=== PATIENT | male | born 1990 | race Caucasian/White ===

== ENCOUNTER 2017-10-20 15:59 | Emergency (ER) | payer MEDICAID, SELFPAY ==
[2017-10-20 16:00] VITALS: BP 134/80; PULSE 68; RESP 16; TEMP 36.4; O2SAT 98; BMI 19.0
--- NOTE | 2017-10-20 17:10 | RAD_ITS ---
STUDY: X-RAY - RIGHT ANKLE REASON FOR EXAM: Male, 27 years old. Increasing swelling and pain. Previous injury. Previous diagnosis of fracture at another facility. TECHNIQUE: 3 view(s) of the ankle. COMPARISON: 06/13/2013. FINDINGS: There is a very faint vertical lucency through the distal tibial metaphysis that was not present previously and could represent a nondisplaced fracture. Normal appearance of the visualized fibula. Normal visualized talus and calcaneus. The visualized subtalar, talonavicular, calcaneocuboid and tarsal articulations are normal. Prominent diffuse soft tissue swelling. RAD/Ankle min 3 Views IMPRESSION: There is a very faint vertical lucency through the distal tibial metaphysis that was not present previously and could represent a nondisplaced fracture. Electronically Signed: Miles Cabral MD at 18:09 EDT , Service support ,
--- NOTE | 2017-10-20 18:27 | ED.DCSUM_ITS ---
- ER Visit Summary Date of Service: 10/20/17 Chief Complaint: Pain and swelling of the right ankle History of Present Illness: The patient is a 27 M who presents with pain and swelling of the right ankle. He initially injured it a week ago when he kicked a plastic table. He was seen at [facility]. He had an x-ray and was diagnosed with an ankle fracture. He was placed in a splint and given crutches. He took off his splint because he states it was uncomfortable and he has been walking on it. He presents today because he still has ankle swelling and it is painful. He has not yet followed up with orthopedics. No other injuries. No paresthesias weakness or loss of function. Physical Examination: Afebrile vitals are stable Heart regular Lungs clear Patient does have soft tissue swelling of the right ankle he has normal sensation light touch brisk capillary refill. He has no calf tenderness he has no proximal fibular tenderness Test Results: X-ray shows a faint lucency vertically in the distal tibia which is likely nondisplaced fracture. Emergency Department Course and Treatment: Given that the patient has already been removed one splint I do not believe going on so I did not fabricate a new splint. He was given a boot orthosis. He was advised to not weight-bear on his ankle. He was advised on supportive care including elevation. He was advised to follow-up with orthopedics and was discharged home. Treatment Plan: [] Disposition: Discharge Impression: Right ankle fracture This note was generated with [employer] dictation software. It may contain incorrect words, spelling, and punctuation that were not noted in review of the chart prior to signing ED Disposition - Plan for ED Patient: Chief Complaint: Lower Extremity Injury Referrals: Care Physician,No Primary [Primary Care Provider] -
--- NOTE | 2017-10-20 18:27 | ED.DEP ---
ED Disposition - Plan for ED Patient: Chief Complaint: Lower Extremity Injury Instructions: ED Fx Ankle General Referrals: Care Physician,No Primary [Primary Care Provider] - Cali Solitario MD [STAFF PHYSICIAN] - Additional Instructions: Do not walk on your broken ankle. Leave the boot you were given on. Elevate your ankle. Follow-up with orthopedics. Apply ice.
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
[2017-10-20 18:50] VITALS: PULSE 89; RESP 16; O2SAT 98
== END 2017-10-20 18:51 | disposition home or self-care (01) ==
PROVIDERS: Emergency Provider Emergency Medicine
DX: S82.301A Unspecified fracture of lower end of right tibia, initial encounter for closed fracture (principal); W22.09XA Striking against other stationary object, initial encounter; Y93.9 Activity, unspecified; Y92.9 Unspecified place or not applicable; Y99.9 Unspecified external cause status; Z72.0 Tobacco use
CPT/HCPCS: 73610; 99283

== ENCOUNTER 2020-03-02 00:20 | Emergency (ER) | payer MEDICAID, SELFPAY ==
[2020-03-02] VITALS (9 sets, daily range): BP systolic 117–153; BP diastolic 67–101; PULSE 88–116; RESP 8–24; TEMP 36.2; O2SAT 96–100
--- NOTE | 2020-03-02 00:23 | RAD_ITS ---
STUDY: X-RAY - LEFT WRIST REASON FOR EXAM: Male, 29 years old. S/P FALL TECHNIQUE: 2 view(s) of the wrist were obtained. COMPARISON: None. FINDINGS: There is a comminuted fracture of the distal radial diaphysis at the junction with metaphysis with ulnar displacement. There is angulation of the distal fragment in relation to the major proximal fragment, tip of the ankle oriented volarly. There is fracture involving the styloid process of ulna with displacement. Otherwise normal radiocarpal articulation. Normal distal radioulnar articulation. Normal carpal bones. Normal carpal articulations. Normal carpometacarpal articulation of the thumb. Normal second through fifth carpometacarpal articulations. Normal visualized metacarpal bones. There is soft tissue swelling at the level of the wrist and distal forearm. RAD/Wrist min 3 Views IMPRESSION: Distal radial fracture is described. Fracture of the styloid process of ulna. Electronically Signed: Jailyn Tillman MD at 1:16 EST , Service support ,
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
[2020-03-02] MEDS: Ondansetron 4 MG/2 ML Vial IV (00:30)
[2020-03-02] MEDS: Diphth,Pertuss(Acell),Tet Vac 0.5 ML Vial IM (00:30)
[2020-03-02] MEDS: HYDROmorphone 1 MG/ML Syringe IM (00:32)
--- NOTE | 2020-03-02 00:52 | RAD_ITS ---
STUDY: X-RAY - LEFT WRIST REASON FOR EXAM: Male, 29 years old. POST REDUCTION TECHNIQUE: 3 view(s) of the wrist were obtained. COMPARISON: None. FINDINGS: Redemonstrated is comminuted fracture of the distal radius, status post reduction and now near anatomic alignment. No persistent mild separation along the fracture line. There is anatomical realignment at the level of the styloid process of ulna. Normal radiocarpal articulation. Normal distal radioulnar articulation. Normal carpal bones. Normal carpal articulations. Normal carpometacarpal articulation of the thumb. Normal second through fifth carpometacarpal articulations. Normal visualized metacarpal bones. The soft tissue structures are unremarkable. RAD/Wrist 2 Views IMPRESSION: Status post reduction with anatomic realignment of the distal radial and ulnar fractures as described. Electronically Signed: Jailyn Tillman MD at 1:16 EST , Service support ,
[2020-03-02] MEDS: Propofol 200 MG/20 ML Vial IV BOLUS (00:59)
== END 2020-03-02 02:04 | disposition home or self-care (01) ==
LOC: ED 01:16
PROVIDERS: Emergency Provider Emergency Medicine
DX: S52.502A Unspecified fracture of the lower end of left radius, initial encounter for closed fracture (principal); S52.612A Displaced fracture of left ulna styloid process, initial encounter for closed fracture; W01.198A Fall on same level from slipping, tripping and stumbling with subsequent striking against other object, initial encounter; Y93.02 Activity, running; Y92.9 Unspecified place or not applicable; Y99.9 Unspecified external cause status; F17.200 Nicotine dependence, unspecified, uncomplicated; Z23 Encounter for immunization
CPT/HCPCS: 25605; 73100; 73110; 90471; 90715; 96372; 96374; 96375; 99152; 99285; J7030; A4216; J2405

== ENCOUNTER 2021-06-11 20:48 | Emergency (ER) | payer MEDICAID, SELFPAY ==
[2021-06-11 20:49] VITALS: BP 146/101; PULSE 63; RESP 18; TEMP 35.8; O2SAT 98; BMI 20.3
--- NOTE | 2021-06-11 21:51 | CT_ITS ---
EXAM: CT HEAD WITHOUT INTRAVENOUS CONTRAST CLINICAL INDICATION: headache TECHNIQUE: Multiple axial images were obtained of the head without intravenous contrast. CTDIvol = ( 44.99 ) mGy, DLP = ( 829.85 ) mGycm This CT exam was performed using one or more of the following dose reduction techniques: automated exposure control, adjustment of the mA and/or kV according to patient size, and/or use of iterative reconstruction technique. This report was created using [employer] report generation technology. COMPARISON: None. FINDINGS: BRAIN AND EXTRA-AXIAL SPACES: Unremarkable. No intra- or extra-axial hemorrhage. No evidence of acute infarct. No intracranial mass or mass effect. There is preservation of the brown/white matter interface. Posterior fossa structures are unremarkable. Ventricles are appropriate for age. No hydrocephalus. Basal cisterns are patent. BONES/JOINTS: Unremarkable. No discrete lytic or blastic abnormalities. SINUSES: Unremarkable as visualized. Clear. MASTOID AIR CELLS: Unremarkable. Clear. ORBITS: Visualized globes, extraocular muscles, optic nerves and retrobulbar fat appear unremarkable. CT/Brain/Head without Contrast IMPRESSION: Negative head/brain CT without intravenous contrast. Electronically Signed: Jose Drake MD at 22:29 EDT ,
--- NOTE | 2021-06-11 21:54 | CM.ED ---
SW Note Referral Source: Case Find Referral Reason: NO PCP SW met with patient. SHELBI advised that this food writer noted that patient had no PCP. SW provided patient with Healthcare Provider Directory. No other concerns voiced except he wanted heated blanket. SW got patient a heated blanket. No other issues or needs identified. Plan: Resources provided Katharine ROSE
--- NOTE | 2021-06-11 22:39 | EX.ED.VIS.HA ---
HPI History of Present Illness Chief Complaint: Headache Informant: patient Onset/Context/Timing Current Severity: Gone Maximum Severity: Moderate Worsened by: light Relieved by: ibuprofen Associated Symptoms/Injury Associated Symptoms: Positive for Nausea and Photophobia; Negative for Numbness, Tingling, Preceding Aura, Visual Changes, Blurred Vision and Visual Loss Narrative Narrative: Patient presents because of headaches that have been going on for months at a time, then he will have no headache for months, this is been going on for several years and he has never seen anyone for it until today. With regards to the headache that he has had today, he states that he took ibuprofen and now it is gone and he feels fine. He has no known medical problems and does no drugs. They sometimes switch sides, and in researching it, he and his significant other are concerned he may be having cluster headaches. Oftentimes he gets headaches in the mornings, but also sometimes at night. PFSH PFSH Medical History no medical history no medical history Allergy/AdvReac Type Severity Reaction Status Date / Time lamotrigine [From Lamictal] Allergy Hives Verified 06/11/21 20:49 loperamide [From Imodium A-D] Allergy Hives Verified 06/11/21 20:49 Social History Smoking Status: Current every day smoker tobacco type: cigarettes ROS ROS ED Constitutional Constitutional ED: Denies chills or fever(s) Eyes Eyes: Reports photophobia; Denies blurry vision or diplopia ENT ENT ED: Denies ear pain or sore throat Cardiovascular Cardiovascular: Denies chest pain or palpitations Respiratory/Chest Respiratory/Chest: Denies cough or dyspnea Gastrointestinal Gastrointestinal: Reports nausea; Denies abdominal pain, diarrhea or vomiting Genitourinary Genitourinary ED: Denies dysuria or urinary frequency Musculoskeletal Musculoskeletal: Denies back pain or myalgias Integumentary Denies abscess or rash Neurologic Neurologic: Reports headache(s); Denies paresthesias or weakness EXAM Physical Exam Const Vital Signs: 06/11/21 20:49 Temperature 96.5 F L Temperature Source Temporal Pulse Rate 63 Respiratory Rate 18 Blood Pressure 146/101 H Blood Pressure Mean 116 Pulse Ox 98 Oxygen Delivery Method Room Air HEENT Reports normocephalic and moist mucous membranes atraumatic Eyes PERRL, EOMs intact bilaterally and conjunctivae normal Neck no lymphadenopathy, supple and no meningeal signs Resp normal respiratory effort and clear to auscultation bilaterally GI non-tender and non-distended Palpation: soft Extremity normal to inspection and full ROM Neuro oriented x3 and CN's II-XII intact bilaterally Sensorium / Orientation: awake and alert Speech: speech normal Gait (Neuro): normal gait Motor Exam: strength 5/5 throughout Psych mental status grossly normal Skin Lesions: no lesions Rashes: no rashes MDM MDM MDM Narrative Medical decision making narrative: I did a CT of the head, it shows no acute abnormality. Patient was reassured and given referral to neurology to follow-up with he is comfortable with that plan and understands we typically do not prescribe preventatives out of the emergency department until they follow-up. Radiography Diagnostic Testing: Clinical Impression(s) from Imaging Studies Brain CT 06/11/21 21:51 IMPRESSION: Negative head/brain CT without intravenous contrast. Electronically Signed: Jose Drake MD at 22:29 EDT , Discharge Plan Triage Chief Complaint: Headache ED Provider: Titus Coronado Dx/Rx/DC Orders Clinical Impression: Intermittent headache Instructions: ED Headache Unspecified Primary Care Provider: Care Physician,No Primary Referrals: Jose Zayas MD [STAFF PHYSICIAN] - (call for appt) Care Physician,No Primary [Primary Care Provider] - Disposition Disposition: Home, Self Care
== END 2021-06-11 22:57 | disposition home or self-care (01) ==
PROVIDERS: Emergency Provider Emergency Medicine; Visit Provider Emergency Medicine
DX: R51.9 Headache, unspecified (principal); R11.0 Nausea; F17.210 Nicotine dependence, cigarettes, uncomplicated
CPT/HCPCS: 70450; 99282

== ENCOUNTER 2021-09-07 16:25 | Emergency (ER) | payer MEDICAID, SELFPAY ==
[2021-09-07 16:26] VITALS: BP 119/90; PULSE 82; RESP 14; TEMP 36.6; O2SAT 98; BMI 19.1
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
[2021-09-07 16:47] VITALS: RESP 18
[2021-09-07] MEDS: Ceftriaxone 500 MG Vial IM (16:55)
[2021-09-07] MEDS: Azithromycin 250 MG Tablet 1000 MG PO (16:55)
[2021-09-07 18:44] LABS: Chlamydia Trachomatis by PCR Negative (Negative); Neisserai gonorrhoeae by PCR Positive (Negative); Probe Check PASS
== END 2021-09-07 17:17 | disposition home or self-care (01) ==
LOC: ED 17:02
PROVIDERS: Nurse Practitioner; Emergency Provider Emergency Medicine; Visit Provider Emergency Medicine
DX: Z20.2 Contact with and (suspected) exposure to infections with a predominantly sexual mode of transmission (principal); R36.9 Urethral discharge, unspecified; R30.0 Dysuria; F17.210 Nicotine dependence, cigarettes, uncomplicated
CPT/HCPCS: 87491; 87591; 96372; 99283

== ENCOUNTER 2021-11-19 13:49 | Emergency (ER) | payer MEDICAID, SELFPAY ==
[2021-11-19 13:50] VITALS: BP 121/91; PULSE 74; RESP 15; TEMP 36.7; O2SAT 98; BMI 18.8
--- NOTE | 2021-11-19 14:03 | RAD_ITS ---
STUDY: X-RAY - LEFT KNEE REASON FOR EXAM: Male, 31 years old. Pain following trauma. TECHNIQUE: 4 view(s) of the knee. COMPARISON: None. FINDINGS: Normal visualized distal femur. Normal visualized proximal tibia and fibula. Normal proximal tibiofibular articulation. Normal medial femorotibial compartment. Normal lateral femorotibial compartment. Normal patellofemoral articulation. The soft tissue structures are unremarkable. RAD/Knee 4 or More Views IMPRESSION: Normal x-ray examination of the knee. Electronically Signed: Villa Ventura MD at 14:51 EDT ,
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
--- NOTE | 2021-11-19 14:17 | RAD_ITS ---
STUDY: X-RAY - RIGHT HAND REASON FOR EXAM: Male, 31 years old. Pain following injury. TECHNIQUE: 3 view(s) of the hand. COMPARISON: Comparison is made with prior study dated 12/18/2016. FINDINGS: Normal radiocarpal articulation. Normal distal radioulnar joint. Normal visualized carpal bones. Normal carpal articulations Normal carpometacarpal articulation of the thumb. Normal second through fifth carpometacarpal joints. Foreshortened fifth metacarpal. Stable deformity of the distal portion of the fifth metacarpal boxer type fracture. Healed fracture of the distal portion of the second metacarpal. Normal metacarpophalangeal joint of the thumb. Normal interphalangeal joint of the thumb. Normal proximal and distal phalanges of the thumb. Normal metacarpophalangeal joints of the second through fifth fingers. Normal proximal and distal interphalangeal joints of the second through fifth fingers. Normal phalanges of the second through fifth fingers. Soft tissue swelling. RAD/Hand Min 3 Views IMPRESSION: Soft tissue swelling. No acute fracture is seen. Electronically Signed: Villa Ventura MD at 14:50 EDT ,
[2021-11-19] MEDS: Diphth,Pertuss(Acell),Tet Vac 0.5 ML Vial IM (15:08)
[2021-11-19 15:23] VITALS: RESP 18
== END 2021-11-19 15:27 | disposition home or self-care (01) ==
PROVIDERS: Emergency Provider Emergency Medicine; Visit Provider Emergency Medicine
DX: S60.221A Contusion of right hand, initial encounter (principal); S80.02XA Contusion of left knee, initial encounter; S80.212A Abrasion, left knee, initial encounter; V28.0XXA Motorcycle driver injured in noncollision transport accident in nontraffic accident, initial encounter; Z23 Encounter for immunization; F17.210 Nicotine dependence, cigarettes, uncomplicated
CPT/HCPCS: 73130; 73564; 90471; 90715; 99282

== ENCOUNTER 2021-11-29 14:17 | Emergency (ER) | payer MEDICAID, SELFPAY ==
[2021-11-29 14:18] VITALS: BP 102/72; PULSE 81; RESP 16; TEMP 36.8; O2SAT 100; BMI 19.1
--- NOTE | 2021-11-29 14:36 | EDS_ITS ---
HPI HPI - GI History of Present Illness Chief Complaint: Abd Pain Informant: patient Narrative Narrative: Weight gain with epigastric pain persistent since morning. No nausea vomiting diarrhea. Normal bowel movement yesterday. Nonbloody stools. No history of similar. Did not eat today. No abdominal surgeries. States no chronic NSAIDs. He denies alcohol use. Denies urinary symptoms. Denies fevers. History of bipolar disorder does not take any medications. Prior similar symptoms: No PFSH PFSH Medical History (Updated 11/29/21 @ 16:[address] To Lackey DO) Bipolar 1 disorder Depression Fx ankle Gastritis Schizophrenia Home Medications naproxen 500 mg tablet 500 mg PO BID #14 tabs 11/19/21 [Rx Last Taken Unknown] omeprazole 40 mg capsule,delayed release 40 mg PO DAILY #30 caps 11/29/21 [Rx Last Taken Unknown] sucralfate 1 gram tablet (Carafate) 1 g PO BID #60 tabs 11/29/21 [Rx Last Taken Unknown] Allergy/AdvReac Type Severity Reaction Status Date / Time lamotrigine [From Lamictal] Allergy Hives Verified 11/29/21 14:18 loperamide [From Imodium A-D] Allergy Hives Verified 11/29/21 14:18 Surgical History H/O elbow surgery Social History Smoking Status: Current every day smoker tobacco type: cigarettes ROS ROS ED Constitutional Constitutional ED: Denies chills, fever(s) or sweats Eyes Eyes: Denies change in vision ENT ENT ED: Denies dysphagia or sore throat Cardiovascular Cardiovascular: Denies chest pain, leg edema, palpitations or racing heartbeat Respiratory/Chest Respiratory/Chest: Denies cough, dyspnea or dyspnea on exertion Gastrointestinal Gastrointestinal: Reports abdominal pain; Denies diarrhea, nausea or vomiting Genitourinary Genitourinary ED: Denies dysuria, hematuria or urinary frequency Musculoskeletal Musculoskeletal: Denies back pain, extremity pain or neck pain Integumentary Denies rash or wounds Neurologic Neurologic: Denies headache(s), paresthesias or weakness EXAM Physical Exam Const Vital Signs: 11/29/21 14:18 11/29/21 17:09 Temperature 98.3 F Temperature Source Temporal Pulse Rate 81 72 Respiratory Rate 16 15 Blood Pressure 102/72 119/58 L Blood Pressure Mean 82 Pulse Ox 100 99 Oxygen Delivery Method Room Air Positive well nourished and well developed General Appearance ED: well developed and NAD HEENT Reports moist mucous membranes normocephalic and atraumatic Eyes PERRL, EOMs intact bilaterally and conjunctivae normal General Eye ED: Yes normal appearance of both eyes Neck no lymphadenopathy and supple General: Negative for tenderness Chest Wall Chest: Negative for tenderness Resp normal respiratory effort and normal air movement Effort and Inspection: symmetric chest movement; Negative for respiratory distress Cardio regular rate, regular rhythm and no murmurs Peripheral Pulses: pulses 2+ throughout GI normal to inspection, nondistended, normoactive bowel sounds GI Narrative: Epigastric tenderness, negative Baker's or McBurney's tenderness. Palpation: Negative for guarding or rebound tenderness present Back/Spine no CVA tenderness and no thoracic nor lumbar tenderness Extremity normal to inspection General Extremety ED: Negative for edema or tenderness General Extremity: Negative for edema Neuro oriented x3 and no sensory deficits noted Sensorium / Orientation: awake and alert Skin no rashes or lesions noted and no wounds MDM MDM MDM Narrative Medical decision making narrative: Patient tender in the epigastric region. Normal labs obtain GI cocktail. Labs all normal on reevaluation reported symptoms not improving. CT scan IV contrast obtained negative. He has no pain in right upper quadrant or right lower quadrant. He discussed to monitor for any progression of symptoms in these regions. He is placed on Carafate and omeprazole. Return precautions. Follow- up given with GI and PCP. All questions were answered. Lab Data Attestation: I reviewed the patient's lab results. Labs: Laboratory Results - last 24 hr 11/29/21 11/29/21 15:10 15:10 WBC 6.5 RBC 5.41 Hgb 15.8 Hct 47.2 MCV 87.2 MCH 29.2 MCHC 33.5 RDW Std Deviation 42.9 RDW Coeff of Joanne 13.4 Plt Count 308 MPV 10.1 Immature Gran % (Auto) 0.300 Neut % (Auto) 62.0 Lymph % (Auto) 27.8 [place] % (Auto) 7.4 Eos % (Auto) 2.0 Baso % (Auto) 0.5 Absolute Neuts (auto) 4.1 Absolute Lymphs (auto) 1.81 Nucleated RBC % 0 Sodium 138 Potassium 4.2 Chloride 104 Carbon Dioxide 27.0 Anion Gap 7 BUN 9 Creatinine 1.12 Estim Creat Clear Calc 85.05 Est GFR (MDRD) Af Amer 97 Est GFR (MDRD) Non-Af 80 BUN/Creatinine Ratio 8.0 L Glucose 91 Calcium 9.1 Total Bilirubin 0.50 Direct Bilirubin 0.12 AST 8 L ALT 12 L Alkaline Phosphatase 63 Total Protein 8.0 Albumin 4.5 Globulin 3.5 Lipase 109 Radiography Diagnostic Testing: Clinical Impression(s) from Imaging Studies Abdomen/Pelvis CT 11/29/21 16:08 IMPRESSION: Normal enhanced CT of the abdomen and pelvis. Electronically Signed: Tom Jacobo MD at 16:32 EDT , Discharge Plan Triage Chief Complaint: Abd Pain ED Provider: To Lackey Dx/Rx/DC Orders Clinical Impression: Acute epigastric pain, Gastritis Instructions: Understanding Gastritis, ED Epigastric Pain Uncertain Cause Prescriptions: New sucralfate [Carafate] 1 gram tablet 1 g PO BID Qty: 60 0RF omeprazole 40 mg capsule,delayed release(DR/EC) 40 mg PO DAILY Qty: 30 0RF No Action naproxen 500 mg tablet 500 mg PO BID Qty: 14 0RF Primary Care Provider: Care Physician,No Primary Referrals: Ghazala Lozano MD [Med Staff - Manager Quality Compliance] - 5-7 Days Souleymane Padilla DO [Med Staff - Active Staff] - 1-2 Weeks Care Physician,No Primary [Primary Care Provider] - Disposition Disposition: Home, Self Care Discharge Date/Time: 11/29/21 17:10
[2021-11-29] MEDS: Mag Hydrox/Al Hydrox/Simeth 30 ML UDC PO (14:55)
[2021-11-29 15:19] LABS: Absolute Lymphocyte Count 1.81 X10^3/uL (0.83-4.51); Absolute Neutrophil Count 4.1 X10^3/uL (2.0-7.7); Basophil# 0.03 X10^3/uL; Basophil% 0.5 % (0-1); Eosinophil# 0.13 X10^3/uL; Hematocrit 47.2 % (40-54); Hemoglobin 15.8 g/dL (13.0-16.5); Lymphocyte # 1.81 X10^3/ul (0.83-4.51); Lymphocyte % 27.8 % (19-41); Mean Corp Hgb Conc 33.5 g/dL (32-36); Mean Corpuscular Hgb 29.2 pg (27.0-32.0); Mean Corpuscular Volume 87.2 fL (80-94); Mean Platelet Vol. 10.1 fl (6.2-12.0); Monocyte# 0.48 X10^3/uL; Monocyte% 7.4 % (0-10); NRBC Flagged by Analyzer 0 % (0-5); Neutrophil # 4.05 X10^3/uL (2.7-7.7); Platelet Count 308 K/mm3 (150-450); RBC Distribution Width CV 13.4 % (11.6-14.6); RBC Distribution Width SD 42.9 fl (35.1-43.9); Red Blood Count 5.41 M/mm3 (4.6-6.2); White Blood Count 6.5 K/mm3 (4.4-11.0)
--- NOTE | 2021-11-29 15:27 | CM.ED ---
SW Note Referral Source: Case Find Referral Reason: No Primary Care Physician (PCP) SW reviewed chart and noted that patient has no PCP. SW provided patient with list of [facility] Physician List for reference. SW also provided patient with handout ?Where to go When?. No other issues or concerns voiced at this time. SW remains available for any additional needs. Plan: Provided patient with PCP information Katharine ROSE
[2021-11-29 15:35] LABS: AST(SGOT) 8 U/L (15-37); Alanine Aminotransfer ALT/SGPT 12 U/L (16-61); Albumin, Serum 4.5 g/dL (3.2-5.0); Alkaline Phosphatase 63 U/L (45-117); Anion Gap 7 (5-15); BUN 9 mg/dL (7-18); Bilirubin, Direct 0.12 mg/dL (0.00-0.30); Calcium,Total 9.1 mg/dL (8.5-10.1); Chloride 104 mmol/L (98-107); Creatinine, Serum 1.12 mg/dL (0.70-1.30); EST Glomerular Filtration Rate 80 mL/min (>60); Est Glom Filt Rate - Afr Amer 97 mL/min (>60); Estimated Creatinine Clearance 85.05 ml/min; Globulin 3.5 g/dL (2.2-4.2); Glucose 91 mg/dL (74-106); Lipase 109 U/L (73-393); Potassium 4.2 mmol/L (3.5-5.1); Sodium Level 138 mmol/L (136-145)
--- NOTE | 2021-11-29 16:08 | CT_ITS ---
STUDY: CT ABDOMEN AND PELVIS WITH CONTRAST REASON FOR EXAM: Male, 31 years old. epigastric pain RADIATION DOSAGE (If Supplied By Facility): CTDIvol = ( 17.16 ) mGy, DLP = ( 403.14 ) mGycm TECHNIQUE: Transaxial images were obtained from the dome of the diaphragm to the symphysis pubis without oral contrast. IV 100mL Isovue-370 was administered. Sagittal and coronal images were reconstructed. Individualized dose optimization techniques were used for this CT. COMPARISON: None. FINDINGS: The visualized lung bases are unremarkable. The visualized portions of the heart are within normal limits. Normal liver. Normal gallbladder and extrahepatic biliary system. Normal spleen. Normal pancreas. Normal bilateral adrenal glands. Normal right kidney. Normal left kidney. Normal visualized stomach. Normal small intestine. Normal colon. There is non-visualization of the appendix. Normal abdominal aorta. Normal inferior vena cava. Normal retroperitoneum. Normal urinary bladder. Normal abdominal wall. Normal osseous structures. CT/Abdomen/Pelvis W IV Cont ONLY IMPRESSION: Normal enhanced CT of the abdomen and pelvis. Electronically Signed: Tom Jacobo MD at 16:32 EDT ,
[2021-11-29 17:09] VITALS: BP 119/58; PULSE 72; RESP 15; O2SAT 99
== END 2021-11-29 17:10 | disposition home or self-care (01) ==
PROVIDERS: Emergency Provider Emergency Medicine; Visit Provider Emergency Medicine
DX: K29.70 Gastritis, unspecified, without bleeding (principal); R10.816 Epigastric abdominal tenderness; F17.210 Nicotine dependence, cigarettes, uncomplicated
CPT/HCPCS: 74177; 80048; 80076; 83690; 85025; 99284; J7030; Q9967; A4216

== ENCOUNTER 2022-11-27 12:21 | Emergency (ER) | payer MEDICAID, SELFPAY ==
[2022-11-27 12:22] VITALS: BP 128/85; PULSE 95; RESP 14; TEMP 36.4; O2SAT 100; BMI 19.6
--- NOTE | 2022-11-27 12:52 | EX.ED.DYSGE1 ---
HPI History of Present Illness Chief Complaint: Lower Extremity Injury Informant: patient Narrative Narrative: Patient presents with 2 separate complaints. He reports having a bump on the back of his knee over the past 3 months. He states it will increase and decrease in size. At this time he can only palpate it when his leg is extended. He denies any injury to the area. He denies any leg swelling. Patient also complains of pain over the top of his left proximal foot for the past 3 days. Pain is worse with flexion or extension at his ankle. He denies any known injury. PFSH PFS Medical History Bipolar 1 disorder Depression Fx ankle Gastritis Schizophrenia Home Medications prednisone 20 mg tablet 40 mg (2 x 20 mg) PO DAILY #8 tabs 11/27/22 [Rx Last Taken Unknown] Allergy/AdvReac Type Severity Reaction Status Date / Time lamotrigine [From Lamictal] Allergy Hives Verified 11/27/22 12:23 loperamide [From Imodium A-D] Allergy Hives Verified 11/27/22 12:23 Surgical History H/O elbow surgery Social History household members: family Smoking Status: Current every day smoker tobacco type: cigarettes ROS ROS ED Constitutional Constitutional ED: Denies chills or fever(s) Eyes Eyes: Denies discharge from eye(s) ENT ENT ED: Denies discharge from eye(s), rhinorrhea or sore throat Cardiovascular Cardiovascular: Denies chest pain or palpitations Respiratory/Chest Respiratory/Chest: Denies cough or dyspnea Gastrointestinal Gastrointestinal: Denies abdominal pain, nausea or vomiting Musculoskeletal Musculoskeletal: Reports extremity pain; Denies back pain Integumentary Denies Abrasions or rash Neurologic Neurologic: Denies headache(s) or weakness Psychiatric Psychiatric: Denies anxiety or depression Allergic/Immunologic Allergic/Immunologic ED: Denies lip swelling or urticaria EXAM Physical Exam Const Vital Signs: 11/27/22 12:22 Temperature 97.6 F L Temperature Source Temporal Pulse Rate 95 Respiratory Rate 14 Blood Pressure 128/85 H Blood Pressure Mean 99 Pulse Ox 100 Oxygen Delivery Method Room Air Positive well nourished and well developed General Appearance ED: well developed HEENT Reports moist mucous membranes Eyes PERRL Chest Wall inspection of chest normal and palpation of chest normal Resp normal respiratory effort and clear to auscultation bilaterally Cardio regular rate and regular rhythm GI non-tender Palpation: soft Extremity Extremity Narrative: Right lower extremity: No palpable masses at this time of the posterior knee. Patient points to an area where his tendon is sliding over the femoral condyle distally on the medial posterior knee. There is no mass or cyst noted to this area. There is no overlying edema. No calf tenderness or edema. No palpable cords. Strong distal pulses. Left lower extremity: Reproducible tenderness over the tendon to the left great toe along the proximal aspect of the foot. No overlying skin change. Pain worse with flexion and extension at the ankle. Neuro oriented x3 and no sensory deficits noted Motor Exam: strength 5/5 throughout Psych mental status grossly normal Skin no rashes or lesions noted MDM MDM MDM Narrative Medical decision making narrative: Left foot x-rays obtained to evaluate for any bony destruction/injury. Treatment and Re-Evaluation :: X-rays per my interpretation reveal no acute bony injury. Patient be treated with a short burst of steroids for tendinitis. Work note given for today. Discharge Plan Triage Chief Complaint: Lower Extremity Injury ED Provider: Terri Jack Dx/Rx/DC Orders Clinical Impression: Tendinitis of left foot Instructions: ED Tendonitis Prescriptions: New prednisone 20 mg tablet 40 mg PO DAILY Qty: 8 0RF Stand Alone Forms: ED Work / School Excuse Primary Care Provider: Care Physician,No Primary Referrals: Enmanuel Lazaro MD [Med Staff - Sport Shoe Spike Assembler] - As Needed Care Physician,No Primary [Primary Care Provider] - Disposition Disposition: Home, Self Care
--- NOTE | 2022-11-27 13:15 | RAD_ITS ---
STUDY: X-RAY - LEFT FOOT CLINICAL: Male, 32 years old. Left foot pain. No known injury. TECHNIQUE: 3 view(s) of the foot. COMPARISON: None. FINDINGS: Normal talus, calcaneus, and tarsal bones. Normal visualized subtalar, talonavicular, calcaneocuboid, tarsal and tarsometatarsal articulations. Normal metatarsi. Normal metatarsophalangeal joint of the great toe. Normal tibial and fibular sesamoid bones. Normal interphalangeal joint of the great toe. Normal phalanges of the great toe. Normal second through fifth metatarsophalangeal joints. Normal interphalangeal joints and phalanges of the lesser toes. The soft tissue structures are unremarkable. RAD/Foot min 3 Views IMPRESSION: Normal x-ray examination of the foot. Electronically Signed: Villa Ventura MD at 14:08 EDT ,
[2022-11-27] MEDS: predniSONE 20 MG Tablet 40 MG PO (13:42)
== END 2022-11-27 13:46 | disposition home or self-care (01) ==
PROVIDERS: Emergency Provider Emergency Medicine; Visit Provider Emergency Medicine
DX: M77.8 Other enthesopathies, not elsewhere classified (principal); F17.210 Nicotine dependence, cigarettes, uncomplicated
CPT/HCPCS: 73630; 99283

== ENCOUNTER 2022-12-01 17:15 | Emergency (ER) | payer MEDICAID, SELFPAY ==
[2022-12-01 17:17] VITALS: BP 127/89; PULSE 118; RESP 20; TEMP 36.1; O2SAT 97; BMI 20.3
--- NOTE | 2022-12-01 17:27 | ED.RN ---
THIS NURSE WENT IN TO ASSESS AND TALK TO PT. HE STATED HE ONLY GOT ONE DAY OFF OF WORK AND HIS SYMPTOMS WERE WORSE. ASKED PT IF HE F/U WITH ORTHOPEDICS. PT STATED HE DIDN'T HAVE A WAY TO GET THERE AND THAT HE WALKED TO ER. EXPLAINED TO PT WHERE THERE ARE LOCAL ORTHOPEDICS. ALSO EXPLAINED THE ER GENERALLY R/O FRACTURES AND LIFE THREATENING SITUATIONS BUT IF THE PROBLEM PERSIST HE NEEDS TO F/U WITH ORTHO. PT THEN ASKED WHY HE ONLY GOT 1 DAY OFF OF WORK AND EXPLAINED THE ER DRS ARE LIMITED ON LENGTH THEY CAN GIVE AND GIVE WHAT THEY FEEL IS APPROPRIATE FOR THE SITUATION. PT IMMEDIATELY JUMPS UP OFF THE BED AND IS COMPLAINING THAT ITS BS HE IS WALKING OUT OF THE ROOM. PT THEN TOLD THIS NURSE FUCK YOU. PT WALKED FROM THE ER AND OUTSIDE WITH STEADY GAIT, NO LIMP OR DISTRESS PRESENT AT A RAPID PACE.
== END 2022-12-01 17:45 | disposition left against medical advice (07) ==
LOC: ED 18:07
DX: Z53.21 Procedure and treatment not carried out due to patient leaving prior to being seen by health care provider (principal)